=== PATIENT | male | born 1990 | race African-American/Black ===

== ENCOUNTER 2017-03-04 23:38 | Emergency (ER) | payer MEDICAID ==
[~2017-03-04] VITALS: Ht 165.1 cm; Wt 70.0 kg
[2017-03-05 00:37] VITALS: BP 123/85
== END 2017-03-05 08:11 | disposition left against medical advice (07) ==
LOC: ER 03-05 08:10
DX: Z53.21 Procedure and treatment not carried out due to patient leaving prior to being seen by health care provider (principal)

== ENCOUNTER 2017-05-12 14:53 | Emergency (ER) | payer MEDICAID ==
[~2017-05-12] VITALS: Ht 170.2 cm; Wt 104.0 kg
[2017-05-12 14:59] VITALS: BP 118/80
== END 2017-05-12 18:50 | disposition left against medical advice (07) ==
LOC: ER 15:16
DX: R42 Dizziness and giddiness (principal); Z53.21 Procedure and treatment not carried out due to patient leaving prior to being seen by health care provider

== ENCOUNTER 2017-05-14 10:02 | Emergency (ER) | payer MEDICAID ==
[~2017-05-14] VITALS: Ht 172.7 cm; Wt 90.0 kg
[2017-05-14] MEDS ORDERED: ONDANSETRON HCL 4MG/2ML VIAL IV STA (10:30)
[2017-05-14] MEDS ORDERED: SODIUM CHLORIDE 0.9% 1,000 ML IV ONE (10:30)
[2017-05-14] MEDS ORDERED: KETOROLAC 30MG/ML VIAL IV STA (10:30)
[2017-05-14 11:59] LABS: BASOPHILS % 1.1 % (0.0-2.0); HEMATOCRIT. 46.9 % (42.0-52.0); HEMOGLOBIN. 15.9 g/dL (14.0-18.0); LYMPHOCYTES % 23.8 % (20.0-50.0); MEAN CORPUSCULAR HEMOGLOBIN 28.6 pg (28.0-32.0); MEAN CORPUSCULAR VOLUME 84.2 fL (80.0-94.0); MEAN PLATELET VOLUME 8.8 fl (7.4-10.4); MONOCYTES % 5.5 % (2.0-8.0); NEUTROPHILS % 68.6 % (40.0-76.0); PLATELET 216 x1000/uL (130-400); RED BLOOD CELL COUNT 5.57 mill/uL (4.7-6.1); RED CELL DISTRIBUTION WIDTH 13.5 % (11.6-14.6)
[2017-05-14 12:00] LABS: CHLORIDE 108 mEq/L (98-107)
[2017-05-14 12:02] LABS: PROTHROMBIN TIME 10.7 sec (9.4-11.6)
[2017-05-14 12:04] LABS: CARBON DIOXIDE 28 mEq/L (21-32)
[2017-05-14 13:43] VITALS: BP 119/74
[2017-05-14 15:42] LABS: CLARITY URINE CLEAR (CLEAR); COLOR URINE YELLOW (YELLOW); GLUCOSE URINE NEGATIVE (NEGATIVE); KETONES URINE NEGATIVE (NEGATIVE); LEUKOCYTE ESTERASE URINE NEGATIVE (NEGATIVE); NITRITE URINE NEGATIVE (NEGATIVE); OCCULT BLOOD URINE NEGATIVE (NEGATIVE); PH URINE 8.5 (4.5-8.0); PROTEIN URINE NEGATIVE (NEGATIVE)
== END 2017-05-14 16:30 | disposition home or self-care (01) ==
LOC: ER 10:20
DX: R10.13 Epigastric pain (principal); R11.2 Nausea with vomiting, unspecified; K76.0 Fatty (change of) liver, not elsewhere classified; F12.10 Cannabis abuse, uncomplicated; J45.909 Unspecified asthma, uncomplicated; Z88.0 Allergy status to penicillin; Z88.6 Allergy status to analgesic agent
CPT/HCPCS: 36415; 74176; 80053; 81003; 83690; 85025; 85610; 96361; 96374; 96375; 99285; J1885; J2405; J7030; Z7610